=== PATIENT | male | born 1945 | race African-American/Black ===

== ENCOUNTER 2024-03-01 11:45 | Emergency (ER) | payer BC, OTHER ==
[~2024-03-01] VITALS: Ht 182.9 cm; Wt 81.6 kg
[2024-03-01 11:52] VITALS: O2SAT 100
[2024-03-01 12:53] LABS: BASOPHILS % 0.5 % (0.0-2.0); HEMATOCRIT. 31.1 % (42.0-52.0); HEMOGLOBIN. 10.4 g/dL (14.0-18.0); MEAN CORPUSCULAR HGB CONC 33.3 g/dL (31.0-37.0); MEAN PLATELET VOLUME 7.2 fl (7.4-10.4); MONOCYTES % 8.6 % (2.0-8.0); NEUTROPHILS % 59.9 % (40.0-76.0); PLATELET 363 x1000/uL (130-400); RED BLOOD CELL COUNT 3.57 mill/uL (4.7-6.1); WHITE BLOOD COUNT 3.8 x1000/uL (4.5-11.0)
[2024-03-01 13:07] LABS: ALANINE AMINOTRANSFERASE 12 IU/L (10-49); ALBUMIN 4.5 g/dL (3.2-4.8); ASPARTATE AMINOTRANSFERASE 59 IU/L (<34); BILIRUBIN TOTAL 0.9 mg/dL (0.1-1.0); CALCIUM 8.1 mg/dL (8.7-10.4); CARBON DIOXIDE 23 mEq/L (21-32); CHLORIDE 100 mEq/L (98-107); CREATININE 1.3 mg/dL (0.6-1.3); GLUCOSE 221 mg/dL (70-105); PROTEIN TOTAL 7.5 g/dL (6.0-8.3); SODIUM 132 mEq/L (136-145); UREA NITROGEN BLOOD 14 mg/dL (9-23)
[2024-03-01 13:46] LABS: POTASSIUM 6.2 mEq/L (3.5-5.1)
[2024-03-01 14:35] LABS: CLARITY URINE CLEAR (CLEAR); COLOR URINE YELLOW (YELLOW); GLUCOSE URINE 2+ (NEGATIVE); KETONES URINE TRACE (NEGATIVE); LEUKOCYTE ESTERASE URINE 1+ (NEGATIVE); NITRITE URINE NEGATIVE (NEGATIVE); OCCULT BLOOD URINE NEGATIVE (NEGATIVE); PH URINE 5.5 (4.5-8.0); PROTEIN URINE NEGATIVE (NEGATIVE); SPECIFIC GRAVITY URINE 1.009 (1.005-1.030)
[2024-03-01 14:59] LABS: SQUAMOUS EPITHELIAL CELL URINE FEW /lpf (RARE/1+)
[2024-03-01 15:00] LABS: WBC URINE 15-25 /hpf (0-2)
[2024-03-01 15:01] LABS: BACTERIA URINE 4+; RBC URINE 0-2 /hpf (0-2)
[2024-03-01] MEDS: LEVOFLOXACIN 500MG PREMIX 100 ML IV NR (15:26)
[2024-03-01 15:59] VITALS: BP 162/77; PULSE 86; RESP 20; TEMP 98.6
== END 2024-03-01 18:07 | disposition left against medical advice (07) ==
LOC: ER 11:45 → EDBEDREQ 15:11 → EDBEDREQTM 15:11 → CANBEDREQ 17:54 → ER 18:07
DX: N39.0 Urinary tract infection, site not specified (principal); R41.0 Disorientation, unspecified; I49.9 Cardiac arrhythmia, unspecified
CPT/HCPCS: 99285; 96365; 70450; 71045; 80053; 81003; 85025; 87086; 87186; 87077; 36415; 72100; 93005; J1956